=== PATIENT | male | born 1970 | race Hispanic/Latino ===

== ENCOUNTER 2023-07-19 06:40 | Emergency (ER) | payer OTHER ==
[~2023-07-19] VITALS: Ht 190.5 cm; Wt 109.3 kg
[2023-07-19] MEDS ORDERED: HYDROCHLOROTHIAZIDE 25 MG TABLET PO ONE (08:30)
[2023-07-19 08:45] LABS: BASOPHILS # (AUTO) 0.02 K/uL (0.00-0.20); BASOPHILS % (AUTO) 0.3 % (0.0-5.0); EOSINOPHILS # (AUTO) 0.06 K/uL (0.00-0.70); EOSINOPHILS % (AUTO) 0.8 % (0.0-8.0); HEMATOCRIT 40.8 % (42-54); IMMATURE GRANULOCYTE ABSOLUTE 0.05 K/uL (0-1); LYMPHOCYTES # (AUTO) 1.4 K/uL (1.0-4.8); LYMPHOCYTES % (AUTO) 18.1 % (21.0-51.0); MEAN CORPUSCULAR HEMOGLOBIN 31.3 pg (27.0-33.0); MEAN CORPUSCULAR HGB CONC 34.6 g/dL (32.0-36.0); MEAN CORPUSCULAR VOLUME 90.7 fL (79-99); MONOCYTES % (AUTO) 12.3 % (3.0-13.0); NEUTROPHILS # (AUTO) 5.4 K/uL (1.8-7.7); NEUTROPHILS % (AUTO) 67.9 % (40.0-77.0); PLATELET COUNT (AUTO) 221 K/uL (130-400); RED CELL DISTRIBUTION WIDTH 13.4 % (11.0-15.5); WHITE BLOOD COUNT (AUTO) 7.9 K/uL (4.8-10.8)
[2023-07-19 08:53] LABS: CREATININE 0.8 mg/dL (0.5-1.5); POTASSIUM 3.3 mmol/L (3.5-5.1)
[2023-07-19 09:04] LABS: MAGNESIUM 2.1 mg/dL (1.80-2.40)
[2023-07-19 09:24] VITALS: BP 155/90; PULSE 68; RESP 18; O2SAT 98
[2023-07-19] MEDS ORDERED: HYDR25TA PO (09:38)
[2023-07-19] MEDS ORDERED: POTASSIUM BICARB/CIT AC 25 MEQ TABLET.EFF PO ONE (10:00)
== END 2023-07-19 10:15 | disposition home or self-care (01) ==
LOC: EDH 06:40
DX: I10 Essential (primary) hypertension (principal); E87.6 Hypokalemia; F41.9 Anxiety disorder, unspecified; F32.A Depression, unspecified
CPT/HCPCS: 36415; 71045; 80048; 82550; 83735; 83874; 84484; 85025; 93005